=== PATIENT | female | born 1955 | race Caucasian/White ===

== ENCOUNTER 2024-04-27 06:42 | Day surgery (SDC) | payer OTHER ==
[~2024-04-27] VITALS: Ht 152.4 cm; Wt 70.8 kg
[2024-04-27 08:15] VITALS: O2SAT 99
[2024-04-27] MEDS ORDERED: GLYCOPYRROLATE 0.2 MG/ML VIAL ONE (09:15)
[2024-04-27] MEDS ORDERED: PROPOFOL 200MG/ 20ML VIAL (DIPRIVAN) IV ONE (09:15)
[2024-04-27] MEDS ORDERED: METOCLOPRAMIDE HCL 10 MG/2 ML VIAL ONE (09:15)
[2024-04-27] MEDS ORDERED: SEVOFLURANE 15 MIN GAS INH ONE (09:15)
[2024-04-27] MEDS ORDERED: SUCCINYLCHOLINE CHLORIDE 20 MG/ML(QUELICIN) ONE (09:15)
[2024-04-27] MEDS ORDERED: DEXAMETHASONE SOD PHOSPHATE 4 MG/ML VIAL ONE (09:15)
[2024-04-27] MEDS ORDERED: NS IRRIG SOLN 1000 ML IR ONE (09:15)
[2024-04-27] MEDS ORDERED: LR 1,000 ML IV.SOLN IV ONE (09:15)
[2024-04-27] MEDS ORDERED: LIDOCAINE MPF 2% 20 MG/1 ML, 5 ML VIAL INH ONE (09:15)
[2024-04-27] MEDS ORDERED: fentaNYL CITRATE/PF 100 MCG/2 ML AMP ONE (09:23)
[2024-04-27] MEDS ORDERED: METOCLOPRAMIDE HCL 10 MG/2 ML VIAL IVP PRN (10:30)
[2024-04-27] MEDS ORDERED: ONDANSETRON HCL 4 MG/2 ML VIAL IVP PRN ×2 (10:30→11:30)
[2024-04-27] MEDS ORDERED: MORPHINE 4 MG INJ. 4 MG/ML VIAL IVP PRN (10:30)
[2024-04-27] MEDS ORDERED: ACETAMINOPHEN 500 MG TABLET PO PRN (11:30)
[2024-04-27] MEDS ORDERED: NALOXONE HCL 0.4 MG/ML AMP (NARCAN) IVP PRN (11:30)
[2024-04-27] MEDS ORDERED: ONDANSETRON 4 MG ODT TAB PO PRN (11:30)
[2024-04-27] MEDS ORDERED: ACETAMINOPHEN/CODEINE 300 MG-30 MG TABLET PO PRN (11:30)
[2024-04-27] MEDS: MORPHINE 4 MG INJ. 4 MG/ML VIAL IVP PRN ×2 (11:43→12:20)
[2024-04-27] MEDS ORDERED: MORPHINE 4 MG INJ. 4 MG/ML VIAL ONE (11:43)
[2024-04-27] MEDS ORDERED: ACETAMINOPHEN I.V. 1000 MG 100 ML IV ONE (11:50)
[2024-04-27] MEDS ORDERED: hydrALAZINE HCL 20 MG/ML VIAL ONE (11:51)
[2024-04-27] MEDS: hydrALAZINE HCL 20 MG/ML VIAL IVP ONE (12:04)
[2024-04-27] MEDS: ACETAMINOPHEN I.V. 1000 MG 100 ML IV ONE (12:17)
[2024-04-27 18:21] VITALS: BP_SYST 134; PULSE 77; RESP 18
== END 2024-04-27 15:07 | disposition home or self-care (01) ==
LOC: SDS 06:42 → SMU 06:50 → SDS 15:07
PROVIDERS: ATTEND Otolaryngology
DX: J32.8 Other chronic sinusitis (principal); J34.3 Hypertrophy of nasal turbinates; I10 Essential (primary) hypertension; K21.9 Gastro-esophageal reflux disease without esophagitis; E66.01 Morbid (severe) obesity due to excess calories; G47.33 Obstructive sleep apnea (adult) (pediatric); E78.5 Hyperlipidemia, unspecified; F32.A Depression, unspecified; Z90.710 Acquired absence of both cervix and uterus; Z98.891 History of uterine scar from previous surgery; Z68.30 Body mass index [BMI] 30.0-30.9, adult; Z79.899 Other long term (current) drug therapy; Z82.49 Family history of ischemic heart disease and other diseases of the circulatory system
CPT/HCPCS: 87081; C1726; J0131; J0330; J0360; J1100; J2270; J2704; J2765; J3010; J3490; J7120